=== PATIENT | male | born 1960 | race African-American/Black ===

== ENCOUNTER 2019-01-08 11:34 | Observation (INO) | payer BC, SELFPAY ==
[~2019-01-08] VITALS: Ht 167.6 cm; Wt 99.1 kg
[2019-01-09 12:59] VITALS: BP 140/92
== END 2019-01-09 17:29 | disposition home or self-care (01) ==
LOC: ED 14:09 → EDIP 14:10 → INTOOBSV 14:10 → ED 14:19 → 5SO 15:20
PROVIDERS: ADMIT Internal Medicine; ATTEND Internal Medicine
DX: R07.89 Other chest pain (principal); F43.10 Post-traumatic stress disorder, unspecified; F32.9 Major depressive disorder, single episode, unspecified; F41.0 Panic disorder [episodic paroxysmal anxiety]; I10 Essential (primary) hypertension; J44.9 Chronic obstructive pulmonary disease, unspecified; F12.90 Cannabis use, unspecified, uncomplicated; F17.210 Nicotine dependence, cigarettes, uncomplicated; Z88.2 Allergy status to sulfonamides; Z79.899 Other long term (current) drug therapy
CPT/HCPCS: 36415; 71046; 80048; 80053; 80061; 82040; 83036; 84443; 84484; 85025; 93005; 93017; 99284; G0378

== ENCOUNTER 2019-02-12 04:15 | Emergency (ER) | payer BC, SELFPAY ==
[~2019-02-12] VITALS: Ht 165.1 cm; Wt 92.0 kg
[~2019-02-12 04:15] MED LIST: AMLO10TA8 PO; TERA10CA3 PO
[2019-02-12] MEDS ORDERED: LORazepam 1MG TABLET PO ONE (05:00)
[2019-02-12] MEDS ORDERED: LORazepam 1MG TABLET ONE (05:03)
[2019-02-12 06:16] VITALS: BP 132/84
== END 2019-02-12 06:19 | disposition home or self-care (01) ==
LOC: ED 05:01
DX: F41.1 Generalized anxiety disorder (principal); I10 Essential (primary) hypertension; J44.9 Chronic obstructive pulmonary disease, unspecified; F31.9 Bipolar disorder, unspecified; F43.10 Post-traumatic stress disorder, unspecified
CPT/HCPCS: 99284